=== PATIENT | male | born 1985 | race Caucasian/White ===

== ENCOUNTER 2019-04-24 13:11 | Inpatient (IN) | payer OTHER ==
[~2019-04-24 13:11] MED LIST: Dextrose 50% Abboject 50 ML SYRINGE ONE
[2019-04-24] MEDS ORDERED: Dextrose 10% in Water 1,000 ML IV SCH ×2 (13:45→17:07)
[2019-04-24 13:53] LABS: Hemoglobin 15.1 g/dL (14.0-18.0); Mean Corpuscular HGB CONC 33.1 g/dL (32.0-36.0); Mean Corpuscular Hemoglobin 29.1 pg (27.0-31.0); Mean Corpuscular Volume 88.1 fL (78.0-98.0); Mean Platelet Volume 6.4 fL (7.4-10.4); Platelet Count 288 thou/uL (130-400); RBC Distribution Width 11.5 % (11.5-14.5); White Blood Cell (WBC) Count 20.1 thou/uL (4.8-10.8)
--- NOTE | 2019-04-24 13:59 | RAD ---
RADIOGRAPH CHEST 1 VIEW: DATE: 04/24/2019 TIME: 1:28 PM HISTORY: 33-year-old male with altered mental status. Concern for aspiration. COMPARISON: 9 double FINDINGS: There is unilateral right lung diffuse haziness, greatest in the central, perihilar region. The left lung is clear. Cardiomediastinal silhouette is normal. The lateral costophrenic angles are sharp. This is a supine image, which would be insensitive for pneumothorax detection. IMPRESSION: Unilateral right-sided central-dominant infiltrate.
[2019-04-24 14:09] LABS: Band 13 % (5-11); Lymphocytes 7 % (21-51); MDiff Complete? YES; Metamyelocyte 1 % (0-0); Monocytes 10 % (0-10); Neutrophil 68 % (42-75); Platelet Morphology Comment Appears Adequate; RBC Morphology Normal
[2019-04-24] MEDS ORDERED: cefTRIAXone\\ROCEPHIN 2 GM VIAL ONE (14:10)
[2019-04-24 14:19] LABS: ALT (SGPT) 20 U/L (8-55); AST (SGOT) 36 U/L (5-34); Albumin 4.2 g/dL (3.5-5.0); Alkaline Phosphatase 55 U/L (40-110); Anion Gap 13 mmol/L (10-20); BUN (Urea Nitrogen) 14 mg/dL (8.9-20.6); Bilirubin, Total 0.4 mg/dL (0.2-1.2); Calc. Creatinine Clearance 0 mL/min (70-130); Calcium 8.8 mg/dL (7.8-10.44); Carbon Dioxide 26 mmol/L (22-29); Chloride 102 mmol/L (98-107); Estimated GFR-MDRD Greater than 90; Globulin 3.3 g/dL (2.4-3.5); Potassium 3.9 mmol/L (3.5-5.1); Protein, Total 7.5 g/dL (6.0-8.3); Sodium 137 mmol/L (136-145)
--- NOTE | 2019-04-24 14:22 | CT ---
Exam: Head CT without contrast HISTORY: Altered mental status COMPARISON: none FINDINGS: Hemorrhage: No intraparenchymal hemorrhage or extra-axial hematoma. Brain parenchyma: Cortical santos-white matter differentiation is preserved. No mass effect or midline shift. Basilar cisterns are patent. Ventricular system: Ventricles and sulci are patent and symmetric. Calvarium: Intact. Sinuses and mastoid air cells: Right maxillary sinus disease. IMPRESSION: 1. No acute intracranial process 2. Right maxillary sinus disease
[2019-04-24 14:23] LABS: Glucose 57 mg/dL (70-105)
[2019-04-24] MEDS ORDERED: Azithromycin 500 MG VIAL ONE (15:09)
--- NOTE | 2019-04-24 15:17 | PDOC.FPRHP ---
- History of Present Illness Chief Complaint: Hypoglycemia History of Present Illness: 33yo M w/ Hx of DM type I presents to the ED after being found down by at home. states that for the past 4 days pt has had 5 severe hypoglycemic episodes. She normally puts honey in his mouth and he is able to come back to very quickly. However last night it took the pt much longer to wake up. She believes it was because he thought his pump was malfunctioning so he took an injection and ended up getting a double dose. Today she found the pt down at their house and was unable to get him aroused with using honey in his mouth so she called 911. On arrival EMS found him to have a glucose in the 40's, he received an amp of D50 in route. Upon arrival he was still have fluctuating glucose levels regardless of the D50 so he was started on a D10 drip. Pt's glucose levels continued to rise from that point. He remained somnolent and only arousable to stimuli, remaining confused and incoherent. stated this was a good sign because that is normally how he acts when he comes out of his hypoglycemic episodes. She denies pt having any recent illness or any sx including cough, cold, congestion, diarrhea, vomiting, rash or lesions. Pt uses a pump and continuous glucose monitor. believes pump settings were changed at his visit with his security tester last month. - Allergies/Adverse Reactions Allergies Allergy/AdvReac Type Severity Reaction Status Date / Time No Known Allergies Allergy Verified 04/24/19 18:07 - Home Medications Medication Instructions Recorded Confirmed Type Insulin Aspart [Novolog] 100 unit SQ DAILY 04/24/19 04/24/19 History - History PMHx: DM type I, Celiac disease PSHx: None FHx:Non contributory Social: Denies any alcohol, drugs, or tobacco use - Review of Systems ROS unobtainable: due to mental status - Vital signs BP: 123/78, Pulse: 128, Resp: 27, Pain: UTR, O2 sat: 93 on Room Air Wt: 94kg - Physical Exam -Constitutional: Somnolent, well developed HEENT: PERRLA, EOMI, MMM Neck: supple, FROM, trachea midline Heart: normal S1/S2, no murmurs/rubs/gallops, pulses present, no edema -Heart: Tachycardic Lungs: good air movement -Lungs: Crackles in RML, RLL, tachypneic Abdomen: soft, non-tender, bowel sounds present Musculoskeletal: normal structure, normal tone, ROM grossly normal -Neurological: Arousable to loud verbal stimuli and physical stimuli Does not respond appropriately or follow commands at this time Skin: no rash/lesions, good turgor, capillary refill <2 seconds, no jaundice Heme/Lymphatic: no unusual bruising or bleeding, no purpura, no petechia -Psychiatric: Unable to assess 2/2 AMS FMR H&P: Results - Labs Result Diagrams: 04/24/19 13:28 04/24/19 13:28 Lab results: WBC 20.1 thou/uL (4.8-10.8) H 04/24/19 13:28 Hgb 15.1 g/dL (14.0-18.0) 04/24/19 13:28 Hct 45.8 % (42.0-52.0) 04/24/19 13:28 MCV 88.1 fL (78.0-98.0) 04/24/19 13:28 Plt Count 288 thou/uL (130-400) 04/24/19 13:28 Band Neuts % (Manual) 13 % (5-11) H 04/24/19 13:28 Sodium 137 mmol/L (136-145) 04/24/19 13:28 Potassium 3.9 mmol/L (3.5-5.1) 04/24/19 13:28 Chloride 102 mmol/L (98-107) 04/24/19 13:28 Carbon Dioxide 26 mmol/L (22-29) 04/24/19 13:28 BUN 14 mg/dL (8.9-20.6) 04/24/19 13:28 Creatinine 0.87 mg/dL (0.7-1.3) 04/24/19 13:28 Glucose 57 mg/dL (70-105) L* 04/24/19 13:28 Lactic Acid 3.6 mmol/L (0.5-2.2) H 04/24/19 14:19 Calcium 8.8 mg/dL (7.8-10.44) 04/24/19 13:28 Total Bilirubin 0.4 mg/dL (0.2-1.2) 04/24/19 13:28 AST 36 U/L (5-34) H 04/24/19 13:28 ALT 20 U/L (8-55) 04/24/19 13:28 Alkaline Phosphatase 55 U/L (40-110) 04/24/19 13:28 Serum Total Protein 7.5 g/dL (6.0-8.3) 04/24/19 13:28 Albumin 4.2 g/dL (3.5-5.0) 04/24/19 13:28 - EKG Interpretation EKG: EKG NSR FMR H&P: A/P - Problem List (1) Type 1 diabetes Current Visit: Yes Status: Acute (2) Hypoglycemia associated with diabetes Current Visit: Yes Status: Acute Code(s): E11.649 - TYPE 2 DIABETES MELLITUS WITH HYPOGLYCEMIA WITHOUT COMA (3) Acute encephalopathy Current Visit: Yes Status: Acute Code(s): G93.40 - ENCEPHALOPATHY, UNSPECIFIED (4) Aspiration pneumonia Current Visit: Yes Status: Acute Code(s): J69.0 - PNEUMONITIS DUE TO INHALATION OF FOOD AND VOMIT - Plan Severe Hypoglycemia - Continue D10 drip - Admit to IMCU for close monitoring - Accu checks q1hr - Moderate SSI - Hypoglycemic protocol Aspiration PNA - RML pna seen on CXR - Received rocephin and azithro in ED - Switched abx to Zosyn to cover for likely aspiration - Fevered, gave IV acetaminophen Acute Encephalopathy - Likely combination of post-ictal state from severe hypoglycemic seizure as well as hypoglycemia related AMS - Will continue to monitor for resulting in IMCU - Sz precautions placed - Expect resolution w/ time and glycemic control VTE: SCD and Lovenox Diet: NPO while AMS Code: Full per IVF: D10 @ 140 Dispo: Admit to IMCU. Expected LOS >48hr PCP: No Doc FMR H&P: Upper Level - Pertinent history 33 yo M with PMH of T1DM since age of 7. Patient has had 5 episodes of hypoglycemia in the past four days. Today his found him unresponsive inside a heated trailer, and thinks he may have been there for up to an hour. He was cold. She gave him honey which did not resolve the episode so she called 911. His blood sugar was down in the 30s. He was given 1 amp D50, and D10 as his blood sugar improved then dropped again. denies cough or fever prior to admission. He had been feeling well, just had had these episodes of hypoglycemia. removed his insulin pump this morning. states he always has shaking, unsure if it was seizure like activity. In ED, he remains confused and somnolent. He was tachycardic in 130s, T 97. He was placed on HFNC. CXR showed RML pneumonia, for which he was given rocephin and azithromycin. CT head was negative. - Pertinent findings PE: General: Patient is arousable but confused. Continues to remove NC from face. Bear hugger in place. Head: bruise over forehead Eyes: PERRLA Mouth: unable to assess due to patient compliance Throat: supple, no LAD Cardiac: RRR, no murmurs Lungs: Crackles Rt lower lobes Abdomen: soft, nontender Extremities: pulses 2+, cap refill < 2 seconds - Plan Date/Time: 04/24/19 1517 Sepsis 2/2 Likely Aspiration Pneumonia -WBC 20, Tachycardic, T 97 -RML lobe pneumonia on CXR -Stop azithromycin and rocephin, start zosyn -Blood cultures pending -tylenol PRN for fever -LR @140 ml/hr Acute Encephalopathy -2/2 hypoglycemia vs infection vs seizure vs other -CT head negative -Tox screen pending -Prolactin pending -TSH pending -NPO until mental status improved Hypoglycemic episodes -Resolved, continue LR @ 140 -q1h accuchecks overnight, Moderate SSI, hypoglycemia protocol -A1C pending Celiac disease -aware I, Christi Nava, have evaluated this patient and agree with findings/plan as outlined by internet sales representative resident. Pertinent changes/additions are listed here.
[2019-04-24] MEDS ORDERED: Ondansetron ODT 4 MG TAB SL PRN (16:59)
[2019-04-24] MEDS ORDERED: Ondansetron PF 4 MG/2 ML Vial IVP PRN ×2 (16:59→17:07)
[2019-04-24] MEDS ORDERED: Dextrose 50% Abboject 50 ML SYRINGE SLOW IVP PRN (17:07)
[2019-04-24] MEDS ORDERED: Acetaminophen 325 MG TAB PO PRN (17:07)
[2019-04-24] MEDS ORDERED: Dextrose 5% in Water 1,000 ML IV PRN (17:07)
[2019-04-24] MEDS ORDERED: Ondansetron ODT 4 MG TAB PO PRN (17:07)
[2019-04-24] MEDS ORDERED: Acetaminophen 1,000 MG in Premix Bag 1 BAG IVPB PRN (17:24)
[2019-04-24 17:34] VITALS: BMI 29.9
[2019-04-24 17:35] LABS: Lactic Acid 1.3 mmol/L (0.5-2.2)
[2019-04-24] MEDS: Piperacillin/Tazobactam 4.5 GM in Sodium Chloride 0.9% 100 ML IVPB SCH (17:44)
[2019-04-24 18:28] LABS: Hemoglobin A1c 5.3 % (4.0-6.0)
[2019-04-24] MEDS: HumaLOG 300 UNITS/3 ML VIAL SC PRN (19:10)
[2019-04-24] MEDS: Lactated Ringer's 1,000 ML IV SCH (19:11)
[2019-04-24 19:25] LABS: Amphetamine Detected (NotDetected); Medtox Reader # READER 4; Methamphetamine Detected (NotDetected)
[2019-04-24 19:26] LABS: Barbiturates Screen Not Detected (NotDetected); Benzodiazepine Screen Not Detected (NotDetected); Cocaine Metabolite Screen Not Detected (NotDetected); Medtox Control Line Valid? VALID (VALID); Methadone Not Detected (NotDetected); Opiate Screen Not Detected (NotDetected); Oxycodone Screen Not Detected (NotDetected); Phencyclidine (PCP) Not Detected (NotDetected); THC/Cannabinoid Screen Not Detected (NotDetected); Tricyclic Screen Not Detected (NotDetected)
[2019-04-25] MEDS: HumaLOG 300 UNITS/3 ML VIAL SC PRN ×8 (00:10→23:01)
[2019-04-25] MEDS: Piperacillin/Tazobactam 4.5 GM in Sodium Chloride 0.9% 100 ML IVPB SCH ×5 (00:10→23:01)
[2019-04-25] MEDS: Lactated Ringer's 1,000 ML IV SCH ×2 (02:06→09:10)
--- NOTE | 2019-04-25 06:32 | PDOC.FM ---
- Subjective Subjective: Mr. Lobo was sleeping in bed this morning. He says that he wants to go home. He has no concerns. Tolerating liquids but has not eaten anything since hospitalization. Urinating well. He has had current pump for about 2 years. - Objective MAR Reviewed: Yes Vital Signs & Weight: Vital Signs (12 hours) Temp 04/25/19 04:00 99.4 F 04/24/19 23:23 99.1 F 04/24/19 19:35 98.8 F Weight Weight 94.801 kg Most Recent Monitor Data Heart Rate from ECG 98 NIBP 111/60 NIBP BP-Mean 77 Respiration from ECG 25 SpO2 91 I&O: 04/23/19 04/24/19 04/25/19 06:59 06:59 06:59 Intake Total 1918 Balance 1918 Result Diagrams: 04/25/19 06:14 04/25/19 06:14 Phys Exam - Physical Examination Constitutional: NAD Respiratory: no wheezing, clear to auscultation bilateral (anteriorly) Cardiovascular: RRR, no significant murmur Gastrointestinal: soft, non-tender, positive bowel sounds Musculoskeletal: no edema Neurological: moves all 4 limbs Skin: normal turgor, cap refill <2 seconds Dx/Plan (1) Acute encephalopathy Code(s): G93.40 - ENCEPHALOPATHY, UNSPECIFIED Status: Acute (2) Aspiration pneumonia Code(s): J69.0 - PNEUMONITIS DUE TO INHALATION OF FOOD AND VOMIT Status: Acute (3) Hypoglycemia associated with diabetes Code(s): E11.649 - TYPE 2 DIABETES MELLITUS WITH HYPOGLYCEMIA WITHOUT COMA Status: Acute (4) Type 1 diabetes Status: Acute - Plan Plan: 33 yo M admitted with AMS, hypoglycemia and likely aspiration pneumonia. Sepsis 2/2 Likely Aspiration Pneumonia -WBC 20, Tachycardic. Did have temp 101.9 04/24. -RML lobe pneumonia on CXR, procalcitonin 0.02 -Azithromycin and rocephin given in ED, continue zosyn (04/24) -Blood cultures pending, NGTD -tylenol PRN for fever -LR @130 ml/hr Acute Encephalopathy -2/2 hypoglycemia vs infection vs seizure vs drug abuse -CT head negative -TSH wnl -NPO until mental status improved, bedside swallow eval today Hypoglycemic episodes, improved -q2h accuchecks, Moderate SSI, hypoglycemia protocol. BG now in 200-300s without hypoglycemia. -A1C 5 UDS + methamphetamine DM1 on insulin pump - pump removed as malfunction concern for hypoglycemic episodes Celiac disease -aware VTE: SCD and Lovenox Diet: NPO while AMS Code: Full per IVF: LR @ 130 Dispo: Continue antibiotics for pneumonia. Mental status is improving, continue to monitor. Bedside swallow and plan to advance diet today. Insulin pump was removed. Will consider replacing today. PCP: DRAGAN Addendum - Attending - Attending Attestation Date/Time: 04/25/19 1529 I personally evaluated the patient and discussed the management with Dr. Morton I agree with the History, Examination, Assessment and Plan documented above with any addition or exceptions noted below. 33 yo DM1 male with recent worsening hypoglycemia with recent adjustment to his insulin pump per his tax processor. Patient with repeated home episodes of hypogylcemia. UDS positive for stimulants PMHX prior use/abuse significant other endorsing concern possible use vyvanse adderal as a prior HX noted. Advance to gluten free diet given hx celiac disease and recommend basal insulin plus SS short acting pending further evaluation. Patient asking to leave today rec he stay for continued observation Mental status ,BS and continue IV antibiotic to cover aspiration PNA. AMS multifactorial do not think related to celiac but infectious process, substance use and repeated hypogylcemia. Patient and family counseled on care plan and concern and need for continued observation.
[2019-04-25 06:40] LABS: #Eosinphils 0.1 thou/uL (0.0-0.7); #Lymphocytes 2.7 thou/uL (1.20-3.40); #Monocytes 1.3 thou/uL (0.11-0.59); #Neutrophils 16.8 thou/uL (1.40-6.50); %Basophils 0.1 % (0.0-1.0); %Eosinophils 0.4 % (0.0-10.0); %Lymphocytes 12.9 % (21.0-51.0); %Monocytes 6.2 % (0.0-10.0); %Neutrophils 80.3 % (42.0-75.0); Hemoglobin 14.1 g/dL (14.0-18.0); Mean Corpuscular HGB CONC 33.8 g/dL (32.0-36.0); Mean Corpuscular Hemoglobin 30.2 pg (27.0-31.0); Mean Corpuscular Volume 89.3 fL (78.0-98.0); Mean Platelet Volume 6.5 fL (7.4-10.4); Platelet Count 240 thou/uL (130-400); RBC Distribution Width 11.3 % (11.5-14.5); Red Blood Cell (RBC) Count 4.66 mill/uL (4.70-6.10); White Blood Cell (WBC) Count 20.8 thou/uL (4.8-10.8)
[2019-04-25 07:02] LABS: Anion Gap 10 mmol/L (10-20); BUN (Urea Nitrogen) 14 mg/dL (8.9-20.6); Calc. Creatinine Clearance 132 mL/min (70-130); Calcium 8.7 mg/dL (7.8-10.44); Carbon Dioxide 26 mmol/L (22-29); Chloride 101 mmol/L (98-107); Estimated GFR-MDRD 79; Glucose 321 mg/dL (70-105); Potassium 4.9 mmol/L (3.5-5.1); Sodium 132 mmol/L (136-145)
--- NOTE | 2019-04-25 07:32 | HP ---
Please the note from Dr. Munoz for which I agree. The patient was seen, evaluated, and discussed with the residents by bedside. HISTORY OF PRESENT ILLNESS: A 33-year-old with type 1 diabetes since age 7. It sounds like he fairly frequently gets hypoglycemic type spells. The described that often after he gets out of the hypoglycemic spells, he will get somewhat combative or frustrated and usually almost always refuses to go to the ER to get help. Recently, he was having some issues with long-acting insulin and short-acting mealtime insulin and was put back on a pump. He was seen just a couple of weeks ago. It sounds like things were fairly stable, though since that time he has been having more low blood sugar spells. 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 He did okay overnight and then had another hypoglycemic spell this morning. She took off the insulin pump last night, so it does not sound like he had any insulin release 12 hours. In the ER, he was found to have a large right-sided lung infiltrate, assuming he aspirated at some point in time. Afebrile according to the . He has not really been coughing, so must have just recently happened. 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 PAST MEDICAL HISTORY: All per Dr. Munoz's history and physical for which I agree. PAST SURGICAL HISTORY: All per Dr. Munoz's history and physical for which I agree. FAMILY HISTORY: All per Dr. Munoz's history and physical for which I agree. SOCIAL HISTORY: All per Dr. Munoz's history and physical for which I agree. MEDICATIONS: All per Dr. Munoz's history and physical for which I agree. PHYSICAL EXAMINATION: GENERAL: Definitely impressive right-sided lung crackles. Despite sugar being above 120, he is somewhat altered and slightly combative and seems somewhat confused. NEUROLOGIC: Moving all 4 extremities. NECK: Supple. HEART: Regular rate and rhythm. ABDOMEN: Benign. EXTREMITIES: Showed no edema. LABORATORY DATA: Blood workup significant for initial blood sugar of 57, but Accu-Cheks since that time gone up. White count is high at 20. IMAGING STUDIES: Chest x-ray, again large right-sided infiltrate. ASSESSMENT: 1. Type 1 diabetic with hypoglycemia. 2. Right-sided infiltrate, likely aspiration pneumonia. 3. Altered mental status, it makes me wonder if he is not postictal activity last night induced tonic-clonic seizure and he is still in a postictal state. No evidence of anything like. Brain-kim, a normal CT. Neck is supple. Do not think this is meningitis. PLAN: To admit in the IMCU. Keep him on D10 drip. Accu-Cheks every hour. Glucagon p.r.n. Zosyn for aspiration pneumonia. Plenty of IV fluids. We will watch him closely to see if his mental status improves. If it does not, we will probably get Neurology involved. Job ID: [id number]
[2019-04-25] MEDS: Enoxaparin Sodium 40 MG/0.4 ML SYRINGE SC SCH (09:09)
[2019-04-25] MEDS ORDERED: Insulin Glargine 10 UNITS in Pre-Filled Syringe 1 EACH SC SCH (13:00)
[2019-04-25] MEDS ORDERED: FLU VACC QS2019-20(6MOS UP)/PF 60 MCG/0.5 ML SYRINGE IM ONE (18:00)
--- NOTE | 2019-04-25 23:58 | CON ---
DATE OF CONSULTATION: HISTORY OF PRESENT ILLNESS: Monty Lobo is 33-year-old type 1 diabetic since he was 7. He has a history of hypoglycemic episodes leading up until this admission. Apparently, there were continuous glucose monitors malfunctioning and overreading glucose according to the patient's sibling. He has presented with an infiltrate in his right chest. It is presumed that he has a pneumonia. He is in the intermediate care unit at this point in time. He has no history of frequent hospitalizations for diabetes complications and apparently has been quite compliant with doing what he needs to do to keep himself healthy. FAMILY HISTORY: Negative for lung disease in early age. SOCIAL HISTORY: Noncontributory. He has an insulin pump and continuous glucose monitor. REVIEW OF SYSTEMS: Otherwise, unremarkable. PHYSICAL EXAMINATION: GENERAL: He is in no distress. VITAL SIGNS: He is afebrile. Blood pressure 107/61, heart rate 104, respiratory rates in the teens, oximetry is 93% on room air. HEENT: Pupils are equal. Sclerae are anicteric. NECK: Supple. LUNGS: Clear anteriorly. Has crackles at his right lateral base. HEART: Regular rhythm. ABDOMEN: Soft and nontender. EXTREMITIES: Without clubbing, cyanosis, or edema. LABORATORY DATA: White count 20.8, hemoglobin 14.1, platelets 240, creatinine is 1.09, glucoses were 57 on presentation, yesterday afternoon 321. This morning glucoses are trending downward. Chest radiograph shows a faint alveolar infiltrate in his right lung. IMPRESSION: 1. Chemical pneumonitis versus pneumonia. He will continue with antimicrobial therapy and if he remains afebrile, can be switched to p.o. antimicrobial therapy tomorrow. 2. His diabetes is being managed appropriately in my opinion. 3. Probably could move out of the intermediate care unit tomorrow, if he continues to improve. Job ID: [id number]
[2019-04-26] MEDS: HumaLOG 300 UNITS/3 ML VIAL SC PRN ×2 (04:56→06:25)
[2019-04-26] MEDS: Piperacillin/Tazobactam 4.5 GM in Sodium Chloride 0.9% 100 ML IVPB SCH (05:00)
[2019-04-26 05:14] LABS: #Eosinphils 0.4 thou/uL (0.0-0.7); #Lymphocytes 2.8 thou/uL (1.20-3.40); #Monocytes 0.9 thou/uL (0.11-0.59); #Neutrophils 9.1 thou/uL (1.40-6.50); %Basophils 0.4 % (0.0-1.0); %Eosinophils 2.8 % (0.0-10.0); %Lymphocytes 21.1 % (21.0-51.0); %Monocytes 6.8 % (0.0-10.0); %Neutrophils 68.9 % (42.0-75.0); Hemoglobin 14.6 g/dL (14.0-18.0); Mean Corpuscular HGB CONC 34.3 g/dL (32.0-36.0); Mean Corpuscular Hemoglobin 29.9 pg (27.0-31.0); Mean Corpuscular Volume 87.3 fL (78.0-98.0); Mean Platelet Volume 6.5 fL (7.4-10.4); Platelet Count 261 thou/uL (130-400); RBC Distribution Width 11.2 % (11.5-14.5); Red Blood Cell (RBC) Count 4.88 mill/uL (4.70-6.10); White Blood Cell (WBC) Count 13.2 thou/uL (4.8-10.8)
[2019-04-26 05:39] LABS: Anion Gap 16 mmol/L (10-20); BUN (Urea Nitrogen) 13 mg/dL (8.9-20.6); Calc. Creatinine Clearance 142 mL/min (70-130); Calcium 8.7 mg/dL (7.8-10.44); Carbon Dioxide 22 mmol/L (22-29); Chloride 102 mmol/L (98-107); Estimated GFR-MDRD 86; Glucose 262 mg/dL (70-105); Potassium 4.4 mmol/L (3.5-5.1); Sodium 136 mmol/L (136-145)
--- NOTE | 2019-04-26 06:43 | PDOC.FM ---
- Subjective Subjective: Mr. Lobo reports feeling well this morning. Has no concerns but says he wants to go home. Tolerating PO intake well. Patient continues to deny any drug abuse. - Objective MAR Reviewed: Yes Vital Signs & Weight: Vital Signs (12 hours) Temp Pulse Resp Pulse Ox 04/26/19 05:00 96 19 04/26/19 03:37 97.5 F L 04/26/19 02:36 95 04/26/19 00:00 105 H 16 04/25/19 23:08 98.5 F 04/25/19 20:00 98 18 04/25/19 19:45 98.2 F Weight Weight 94.801 kg Most Recent Monitor Data Heart Rate from ECG 101 NIBP 133/77 NIBP BP-Mean 95 Respiration from ECG 19 SpO2 92 I&O: 04/24/19 04/25/19 04/26/19 06:59 06:59 06:59 Intake Total 1918 2630 Balance 1918 2630 Result Diagrams: 04/26/19 04:55 04/26/19 04:55 Phys Exam - Physical Examination Constitutional: NAD Respiratory: no wheezing, clear to auscultation bilateral Cardiovascular: RRR, no significant murmur Gastrointestinal: soft, non-tender, positive bowel sounds Musculoskeletal: no edema Neurological: moves all 4 limbs Psychiatric: normal affect Skin: normal turgor Dx/Plan (1) Acute encephalopathy Code(s): G93.40 - ENCEPHALOPATHY, UNSPECIFIED Status: Acute (2) Aspiration pneumonia Code(s): J69.0 - PNEUMONITIS DUE TO INHALATION OF FOOD AND VOMIT Status: Acute (3) Hypoglycemia associated with diabetes Code(s): E11.649 - TYPE 2 DIABETES MELLITUS WITH HYPOGLYCEMIA WITHOUT COMA Status: Acute (4) Type 1 diabetes Status: Acute - Plan Plan: 33 yo M admitted with AMS, hypoglycemia and likely aspiration pneumonia. Sepsis 2/2 Likely Aspiration Pneumonia, improved -WBC 20, Tachycardic. Did have temp 101.9 04/24. -RML lobe pneumonia on CXR, procalcitonin 0.02 -Azithromycin and rocephin given in ED, zosyn (04/24)-dose refused last night. Will transition to PO Augmentin today to complete 7 day course -Blood cultures NGTD Acute Encephalopathy, improved -2/2 hypoglycemia vs infection vs drug abuse -CT head negative -TSH wnl Hypoglycemic episodes, improved -q2h accuchecks, Moderate SSI, hypoglycemia protocol. BG now in 200-300s. Will restart insulin pump today. -A1C 5 UDS + methamphetamine DM1 on insulin pump - has regular follow up with customer quality specialist Celiac disease -aware VTE: SCD and Lovenox Diet: CC/gluten free Code: Full per IVF: SL Dispo: Replace insulin pump. Discharge home today with PO antibiotics to complete treatment course. Has follow up tomorrow with endocrine. PCP: DRAGAN Addendum - Attending - Attending Attestation Date/Time: 04/26/19 [id number] I personally evaluated the patient and discussed the management with Dr. Morton I agree with the History, Examination, Assessment and Plan documented above with any addition or exceptions noted below.
[2019-04-26 07:01] VITALS: TEMP 98.9
[2019-04-26] MEDS ORDERED: Amoxicillin/Potassium Clav 875 MG TAB PO SCH (09:00)
[2019-04-26] MEDS: Enoxaparin Sodium 40 MG/0.4 ML SYRINGE SC SCH (10:23)
== END 2019-04-26 10:55 | disposition home or self-care (01) | DRG 177 ==
LOC: ERS 13:11 → IMCU/EMU 16:57
PROVIDERS: ADMIT Family Medicine; ATTEND Family Medicine
DX: J69.0 Pneumonitis due to inhalation of food and vomit (principal); A41.9 Sepsis, unspecified organism; G92 Toxic encephalopathy; R65.20 Severe sepsis without septic shock; E10.649 Type 1 diabetes mellitus with hypoglycemia without coma; T43.621A Poisoning by amphetamines, accidental (unintentional), initial encounter; F15.10 Other stimulant abuse, uncomplicated; K90.0 Celiac disease; Z96.41 Presence of insulin pump (external) (internal); Z79.4 Long term (current) use of insulin; Z28.21 Immunization not carried out because of patient refusal
CPT/HCPCS: 36415; 36416; 70450; 71045; 80048; 80053; 80306; 83036; 83605; 84145; 84146; 84443; 85025; 87040; 93005; 94640; 96361; 96365; 96375; J0131; J0456; J0696; J1650; J1815; J2405; J2543; J3490